=== PATIENT | female | born 1990 | race Two or more races ===

== ENCOUNTER 2024-06-27 14:11 | Outpatient (AMB) | payer OTHER, SELFPAY ==
--- NOTE | 2024-06-27 14:46 | A.OFFPC_ITS ---
Vital Signs 06/27/24 14:47 Height 5 ft 6.54 in Weight 195 lb 6 oz BMI 31.0 BP 100/76 Blood Pressure Location Lt brachial Position Sitting Pulse 72 Pulse Source Pulse Oximeter Temp 97.7 F Temp Source Temporal Artery Scan Pulse Oximetry (%) 99 Oxygen Delivery Method Room Air Intake Visit Reasons: establish care Intake Note: Patient is a new patient here to establish care for stomach ulcer. Textbook Associate Required: Yes Textbook Associate Language: Pakistani Creole Textbook Associate Name: used [employer]iya[employer] [id number] Accompanied by: Self / Same As Patient Is last menstrual period known: No (pt has 7 years without menstrual cycle.) Allergies No Known Allergies Allergy (Verified 06/27/24 15:08) Medication List - Last Reconciled 06/27/24 by Juan F Adams PA-C No Known Home Meds Tobacco use date assessed: 06/27/24 [facility] Social History Patient Tobacco Use Status: Never used Tobacco Tobacco use type: Cigarette e-Cigarette/Vaping Use: Never Used service: No Current occupational status: unemployed Questionnaire PHQ-9 Over the last 2 weeks, how often have you been bothered by any of the following problems? 1. Little interest or pleasure in doing things: more than half the days 2. Feeling down, depressed, or hopeless: nearly every day 3. Trouble falling or staying asleep, or sleeping too much: more than half the days 4. Feeling tired or having little energy: more than half the days 5. Poor appetite or overeating: not at all 6. Feeling bad about yourself - or that you are a failure or have let yourself or your family down: not at all 7. Trouble concentrating on things, such as reading the newspaper or watching television: more than half the days 8. Moving or speaking so slowly that other people could have noticed. Or the opposite - being so fidgety or restless that you have been moving around a lot more than usual: not at all 9. Thoughts that you would be better off or of hurting yourself in some way: not at all Total score: 11 56507 - PHQ-9 Billing: Yes Source: Developed by Drs. Jesse Sheridan, JakyOsman De La Rosa and colleagues, with an educational sandy from [employer]. Thrive Questionnaire Date Thrive assessed: 06/27/24 I am a: Patient What is your living situation today?: I have a place to live, but I am worried about losing it in the future (Not enough fund in the organization to help the pt. ) Within the past 12 months, did the food you bought not last and you didn't have the money to get more?: Often true ([place] food assistance will cut off 06/29/24. ) Within the past 12 months, did you worry whether your food would run out before you got money to buy more?: Never true Do you have trouble paying for medicines?: No Do you have trouble getting transportation to medical appointments?: No Do you have trouble paying your heating and electricity bill?: No Do you have trouble taking care of your child, family member or friend?: No Do you have trouble with day-to-day activities such as bathing, preparing meals, shopping, managing finances, etc.?: No Are you currently unemployed and looking for a job?: Yes Are you interested in more education?: Yes Please select the resources that you would like help with: Housing/Correction, Food, Transportation, Job search/training and Education Currently or been in a relationship where the following occur: I choose not to answer THRIVE Score: 2 AUDIT C Alcohol Use Questionnaire (AUDIT-C) 1. How often do you have a drink containing alcohol?: Never 3. How often do you have six or more drinks on one occasion?: Never Total Score: 0 HERLINDA-7 AMB Questionnaire HERLINDA-7 Date HERLINDA - 7 assessed: 06/27/24 Feeling nervous, anxious, or on edge: 0 = Not at all Not being able to stop or control worryin = Not at all Worrying too much about different things: 0 = Not at all Trouble relaxin = Not at all Being so restless that it is hard to sit still: 0 = Not at all Becoming easily annoyed or irritable: 0 = Not at all Feeling afraid as if something awful might happen: 0 = Not at all Total HERLINDA-7 score (0-4 normal; 5-9 mild; 10-14 moderate; 15-21 severe): 0 Source: Developed by Drs. Jesse Sheridan, Jaky Membreno, Osman Pan and colleagues, with an educational sandy from [employer]. Physical exam (Primary Care) Vital Signs: Last Vital Signs Temp 97.7 F 06/27/24 14:47 Pulse 72 06/27/24 14:47 BP 100/76 06/27/24 14:47 Pulse Ox 99 06/27/24 14:47 Oxygen Delivery Method Room Air 06/27/24 14:47 BMI result Body Mass Index 31.0 Tobacco/Smoking Status: Tobacco use Status Tobacco use date assessed 06/27/24 06/27/24 15:08 Patient Tobacco Use Status Never used Tobacco 06/27/24 15:08 Tobacco use type Cigarette 06/27/24 15:08 e-Cigarette/Vaping Use Never Used 06/27/24 15:08 PHQ-9: PHQ-9 Score PHQ-9: Total score 11 06/27/24 15:08 Thrive Assessment: Date of Thrive Assessment Date Thrive assessed 06/27/24 06/27/24 15:08 Currently or been in a relationship where the following occur: I choose not to answer Immunizations Boostrix Tdap 2.5 Lf unit-8 mcg-5 Lf/0.5 mL intramuscular syringe Performing Provider: Juan F Adams PA-C Per[facility] Administered by: APRIL Mayes on 06/27/24 15:37 Dose Route Admin Location Dispensed Lot Number Expiration Date NDC Cafe Attendant 0.5 mL IM Left Deltoid 0.5 mL [id number] 08/17/26 [id number] [employer] VIS Given Date VIS Provided VIS Publication Date 06/27/24 Single Vaccine 20 Eligibility Eligibility Date Funding Source Not [facility] Eligible 06/27/24 Private Coding Diagnoses Amenorrhea N91.2 Class 1 obesity E66.811 Screening for diabetes mellitus (DM) Z13.1 Gastric ulcer without hemorrhage or perforation, unspecified chronicity K25.9 Gastric ulcer chronicity: unspecified ulcer chronicity Gastric ulcer complication status: without hemorrhage or perforation Additional Codes PHQ-9 - 48915 - PHQ-9 Billing: Yes ([id number]) Assessment & Plan Assessment & Plan (1) Amenorrhea: Code(s): N91.2 - Amenorrhea, unspecified Category: Medical (2) Class 1 obesity: Code(s): E66.811 - Obesity, class 1 Category: Medical (3) Screening for diabetes mellitus (DM): Code(s): Z13.1 - Encounter for screening for diabetes mellitus Category: Medical (4) Gastric ulcer: Code(s): K25.9 - Gastric ulcer, unspecified as acute or chronic, without hemorrhage or perforation Category: Medical Qualifiers: Gastric ulcer chronicity: unspecified ulcer chronicity Gastric ulcer complication status: without hemorrhage or perforation Qualified Code(s): K25.9 - Gastric ulcer, unspecified as acute or chronic, without hemorrhage or perforation Orders: Orders Complete Blood Count no Diff Today Z13.1 - Encounter for screening for diabetes mellitus TDaP Immunization Today K25.9 - Gastric ulcer, unspecified as acute or chronic, without hemorrhage or perforation, Z23 - Encounter for immunization Comprehensive [place]. 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
[2024-06-27 14:47] VITALS: BP 100/76; PULSE 72; TEMP 36.5; O2SAT 99; BMI 31.0
--- OUTSIDE RECORDS SUMMARY | 2024-06-27 17:17 | XMS_ITS | Patient Health Record ---
Author Organization [facility] Address [address] [place] [address] [phone] Care Team Providers Care V Belt Coverer Name Role Phone JULIO WEBBER Unavailable [phone] Nydia Us Unavailable [phone] Allergies No Known Allergies Results Component Value Reference Range Notes Test, Urine Reviewed date:04/17/2024 02:05:35 PM Interpretation:Negative Performing Lab: Notes/Report: Negative Test, Urine neg Lot # [id number] Exp. Date 01/21/2025 THINPREP PAP TEST, Cervix Reviewed date:05/02/2024 08:53:55 AM Interpretation:Normal Performing Lab:[facility], [address], [place], [address] Dallas Benitez DO Notes/Report: THINPREP PAP TEST NEGATIVE NEGATIVE -- THIN PREP PAP TEST -- SEX: F : 1990 AGE: 33 [id number] CLINIC ID: [id number] SS: PHYSICIAN: JULIO WEBBER CNM COLLECTED BY: Negative for Intraepithelial Lesion or Malignancy Additional Findings: Endocervical Material Present Specimen Adequacy: Satisfactory for Evaluation Clinical Note: HPV ZynnpxuS98.419 Encounter for gynecological examination (general) (routine) without abnormal zrokulvoG87.51 Encounter for screening for human papillomavirus (HPV), LMP 05-01-2017 Specimen Source: Cervix Visit Type: Routine Performed by: BREE Willard (ASCP) (Electronic Signature 04/20/2024 23:42) HPV HIGH RISK, Cervix Reviewed date:05/02/2024 08:54:04 AM Interpretation:Negative Performing Lab:[facility], [address], [place], [address] Dallas Benitez DO Notes/Report: HPV HIGH RISK NEGATIVE NEGATIVE HPV High Risk DNA Probe Assay SEX: F : 1990 AGE: 33 [id number] CLINIC ID: [id number] SS: PHYSICIAN: JULIO WEBBER CNM COLLECTED BY: Specimen Source: Cervix Specimen Type: ThinPrep Pap Correlating Pap: [id number] Additional High Risk Subtypes* NEGATIVE * Includes 31,33,35,39,45,51,52,56,58 ,59,66,68 Subtype 16 NEGATIVE Subtype 18 NEGATIVE Testosterone,All genders-540 005 Reviewed date:04/15/2024 10:57:18 AM Interpretation:11 Normal Performing Lab:[facility], [address] [place] [address], Phone - [phone], Director - [facility] [address] Notes/Report: Testosterone, All genders 11 This test was developed and its performance characteristics determined by [facility]. It has not been cleared or approved by the Food and Drug Administration. Reference Range: Note: The order code chosen results in a complete set of reference ranges, including transgender specific reference intervals if applicable. Age Range Males Premature (26-28w) Day 4 59-125 Premature (31-35w) Day 4 37-198 Newborns 75-400 1 - 7m: Levels decrease rapidly the first week to 20 - 50, then increase to 60 - 400 between 20 - 60 days. Levels then decline to prepubertal range levels of <2.5 - 10 by seven months. Females Premature (26-28w) Day 4 5-16 Premature (31-35w) Day 4 5-22 Newborns 20-64 1 - 7m: Levels decrease during the first month to less than 10 and remain there until puberty. Prepubertal Males and Females <2.5-10 Simone Stage Age(years) Male 1 <9.8 2.5-10 2 9.8-14.5 18-150 3 10.7-15.4 100-320 4 11.8-16.2 200-620 5 12.8-17.3 350-970 Simone Stage Age(years) Female 1 <9.2 <2.5-10 2 9.2-13.7 7-28 3 10.0-14.4 15-35 4 10.7-15.6 13-32 5 11.8-18.6 20-38 Adult Males >18 years 264-916 This [employer] LC/MS-MS method is currently certified by the CDC Hormone Standardization Program (HoST). Adult male reference interval is based on a population of healthy nonobese males (BMI <30) between 19 and 39 years old. Kimmy, et.al. JCEM 2017,102;3765-7135 PMID: [id number]. Adult Females Premenopausal 10-55 Postmenopausal 7-40 TSH reflex to [id number] Reviewed date:03/26/2024 12:33:57 PM Interpretation:1.750 (normal) Performing Lab:[facility], [facility] [address], [address], [place], Phone - [phone], Director - [facility] Notes/Report: TSH 1.750 0.450-4.500 uIU/mL NuSwab VG+, Ena 6sp-1800 68 Reviewed date:04/05/2024 09:24:43 AM Interpretation:negative Performing Lab:[facility], [address] [facility], [place], Phone - [phone], [facility] Notes/Report: Test(s) 718672- Atopobium vaginae; 438774- BVAB 2; 752790- Megasphaera 1 was developed and its performance characteristics determined by [employer]. It has not been cleared or approved by the Food and Drug Administration. Test(s) 681153-Tjegaxd albicans, FABIOLA; 782812-Cmxghel glabrata, FABIOLA; 129815-A parapsilosis/tropicalis; 328221-Kzzjaka lusitaniae, FABIOLA; 327007-Qhnfury krusei, FABIOLA was developed and its performance characteristics determined by [employer]. It has not been cleared or approved by the Food and Drug Administration. Atopobium vaginae Low - 0 BVAB 2 Low - 0 Megasphaera 1 Low - 0 Calculate total score by adding the 3 individual bacterial vaginosis (BV) marker scores together. Total score is interpreted as follows: Total score 0-1: Indicates the absence of BV. Total score 2: Indeterminate for BV. Additional clinical data should be evaluated to establish a diagnosis. Total score 3-6: Indicates the presence of BV. Ena albicans, FABIOLA Negative Negative Ena glabrata, FABIOLA Negative Negative C parapsilosis/tropicalis Negative Negative Th is assay does not differentiate C. tropicalis and C. parapsilosis. Ena lusitaniae, FABIOLA Negative Negative Ena krusei, FABIOLA Negative Negative Trich vag by FABIOLA Negative Negative Chlamydia trachomatis, FABIOLA Negative Negative Neisseria gonorrhoeae, FABIOLA Negative Negative HIV Ab/p24 Ag with Reflex-08 3935 Reviewed date:03/26/2024 12:34:27 PM Interpretation:non reactive Performing Lab:[facility], Dipika Mukherjee, [address] [place] [address], Phone - [phone], Director - [facility] Notes/Report: HIV Ab/p24 Ag Screen Non Reactive Non Reactive HIV-1/HIV-2 antibodies and HIV-1 p24 antigen were NOT detected. There is no laboratory evidence of HIV infection. HIV Negative T pallidum Screening Pierce -[id number] Reviewed date:03/26/2024 10:11:22 AM Interpretation:non reactive Performing Lab:[facility], [address]ika [address], [address], [place], Phone - [phone], Director - [facility] Notes/Report: T pallidum Antibodies Non Reactive Non Reactive [facility]-[id number] Reviewed date:04/05/2024 02:24:10 PM Interpretation:18.0 Performing Lab:[facility] [place], [address] [place] [address], Phone - [phone], Director - MDJodry Notes/Report: Estradiol 18.0 Adult Female Range Follicular phase 12.5 - 166.0 Ovulation phase 85.8 - 498.0 Luteal phase 43.8 - 211.0 Postmenopausal <6.0 - 54.7 1st trimester 215.0 - >4300.0 Pat ECLIA methodology Prolactin-764151 Reviewed date:03/26/2024 02:38:20 PM Interpretation:23.3 (normal) Performing Lab:[facility] [place], [address] [place] [address], Phone - [phone], Director - Maria Elenay Notes/Report: Prolactin 23.3 4.8-33.4 ng/mL FSH-287710 Reviewed date:04/05/2024 02:23:43 PM Interpretation:25.6 Performing Lab:[facility] [place], [address] [facility], [place], Phone - [phone], Director - Maria Elenay Notes/Report: FSH 25.6 Adult Female Range Follicular phase 3.5 - 12.5 Ovulation phase 4.7 - 21.5 Luteal phase 1.7 - 7.7 Postmenopausal 25.8 - 134.8 Urinalysis Reviewed date:03/26/2024 09:48:09 AM Interpretation:negative Performing Lab: Notes/Report: negative Leukocytes - Nitrates - Uro 0.2 Protein - pH 6.0 Blood - Spec [place] 1.030 Ketones - Bilirubin - Glucose - Test, Urine Reviewed date:03/25/2024 02:01:28 PM Interpretation:Negative Performing Lab: Notes/Report: Negative Test, Urine nrg Lot # [id number] Exp. Date [id number] Reason For Referral No Information Social History Sex Assigned At : Social History Observation Description Sex Assigned At Female Problems Problem Type SNOMED Code ICD Code Onset Dates Problem Status W/U Status Risk Notes Problem Secondary amenorrhea (569324774) Secondary amenorrhea (N91.1) Active confirmed Problem Amenorrhea (82476995) Amenorrhea (N91.2) Active confirmed Vital Signs Blood pressure diastolic 76 mm Hg 04/17/2024 Height 5'5 in 04/17/2024 Blood pressure systolic 132 mm Hg 04/17/2024 Weight 220 lbs 04/17/2024 BMI 36.61 kg/m2 04/17/2024 Encounters Encounter Location Date Provider Diagnosis [address] [phone] 03/25/2024 Nydia Us Encounter for test, result negative Z32.02 ; Urinary frequency R35.0 ; Secondary amenorrhea N91.1 ; Encounter for screening for infections with a predominantly sexual mode of transmission Z11.3 ; Vaginal discharge N89.8 and Encounter for screening for human immunodeficiency virus [HIV] Z11.4 [facility] [address] [place], [place] [id number] 04/17/2024 JULIO WEBBER Encounter for gynecological examination (general) (routine) without abnormal findings Z01.419 ; Encounter for screening for human papillomavirus (HPV) Z11.51 ; Amenorrhea N91.2 and Encounter for test, result negative Z32.02 Assessments Encounter Date Diagnosis (ICD Code) Assessment Notes Treatment Notes Treatment Clinical Notes Section Notes 04/17/2024 Encounter for gynecological examination (general) (routine) without abnormal findings (ICD-10 - Z01.419) For routine pap screening today. If normal then routine screening in 5 years recommended 04/17/2024 Encounter for screening for human papillomavirus (HPV) (ICD-10 - Z11.51) 04/17/2024 Amenorrhea (ICD-10 - N91.2) FSH is mildly elevated however clt has been on Depo for the past 6 years and was less than 1 yr since last injection. It can take upto a year or sometimes longer for fertility to return after Depo use. A long conversation using patient accounts clerk services to review this information. Did review that ovulation can occur prior to menses returningand that can occur. Discussed options for control now despite no menses. Clt prefers to use condoms for now until menses returns. Bag of condoms given Recommend follow-up visit in July to see if menses back then. Can consider repeating labs at that time if not 03/25/2024 Encounter for test, result negative (ICD-10 - Z32.02) Need 2 out of 3 Sections from A-C Section B) Data (at least one of the following categories in this section) Category 1: (Choose 2 of the following): Order unique tests Section C) Risk Document low risk of morbidity/mo rtality 03/25/2024 Urinary frequency (ICD-10 - R35.0) Normal UA Need 2 out of 3 Sections from A-C Section B) Data (at least one of the following categories in this section) Category 1: (Choose 2 of the following): Order unique tests Section C) Risk Document low risk of morbidity/mo rtality 04/17/2024 Encounter for test, result negative (ICD-10 - Z32.02) 03/25/2024 Secondary amenorrhea (ICD-10 - N91.1) Reviewed possible causes of secondary amenorrhea. Suspect due to tail effect of DMPA. Will screen for PCOS, thyroid disorder and hyperprolactinemia today. Pt to return for pelvic exam at soonest convenience. Need 2 out of 3 Sections from A-C Section B) Data (at least one of the following categories in this section) Category 1: (Choose 2 of the following): Order unique tests Section C) Risk Document low risk of morbidity/mo rtality 03/25/2024 Encounter for screening for infections with a predominantly sexual mode of transmission (ICD-10 - Z11.3) Need 2 out of 3 Sections from A-C Section B) Data (at least one of the following categories in this section) Category 1: (Choose 2 of the following): Order unique tests Section C) Risk Document low risk of morbidity/mo rtality 03/25/2024 Encounter for screening for human immunodeficiency virus [HIV] (ICD-10 - Z11.4) Need 2 out of 3 Sections from A-C Section B) Data (at least one of the following categories in this section) Category 1: (Choose 2 of the following): Order unique tests Section C) Risk Document low risk of morbidity/mo rtality 03/25/2024 Vaginal discharge (ICD-10 - N89.8) Vag+ testing sent. Reviewed STI screening recommendations and available testing through [facility]. Testing ordered as noted per patient risks and preference. Encouraged safe sex practices. Advised to call for evaluation if any symptoms arise. Reviewed method of communicating results to patient. Need 2 out of 3 Sections from A-C Section B) Data (at least one of the following categories in this section) Category 1: (Choose 2 of the following): Order unique tests Section C) Risk Document low risk of morbidity/mo rtality Plan Of Treatment Next Appt Details Provider Name:JULIO WEBBER, 11:00:00 AM, [address] [place] [address], [phone], Insurance Providers Payer Name Payer Address Payer Phone Subscriber Number Group Number Insured Name Patient Relationship to Insured Coverage Start Date Coverage End Date [place] ATT [place]S [address] [place] [address] [id number] Alana Valencia Self - patient is the insured Medical (General) History Medical History History ICD Code Vaginal infections stomach ulcer Hospitalization History Reason Date(Month/Year) childbirth
--- OUTSIDE RECORDS SUMMARY | 2024-06-27 17:17 | XMS_ITS ---
Author Organization [facility] Address [address] [place] [phone] Care Team Providers Care Creative Engagement Director Name Role Phone JULIO WEBBER Unavailable [phone] Allergies No Known Allergies Results Component Value Reference Range Notes Test, Urine Reviewed date:04/17/2024 02:05:35 PM Interpretation:Negative Performing Lab: Notes/Report: Negative Test, Urine neg Lot # [id number] Exp. Date 01/21/2025 THINPREP PAP TEST, Cervix Reviewed date:05/02/2024 08:53:55 AM Interpretation:Normal Performing Lab:[facility], [address], [place], [address] Dallas Benitez DO Notes/Report: THINPREP PAP TEST NEGATIVE NEGATIVE -- THIN PREP PAP TEST -- SEX: F : 1990 AGE: 33 [id number] CLINIC ID: [id number] SS: PHYSICIAN: JULIO WEBBER CNM COLLECTED BY: Negative for Intraepithelial Lesion or Malignancy Additional Findings: Endocervical Material Present Specimen Adequacy: Satisfactory for Evaluation Clinical Note: HPV CmhfggkF15.419 Encounter for gynecological examination (general) (routine) without abnormal ttofgsouT42.51 Encounter for screening for human papillomavirus (HPV), LMP 05-01-2017 Specimen Source: Cervix Visit Type: Routine Performed by: BREE Willard (ASCP) (Electronic Signature 04/20/2024 23:42) HPV HIGH RISK, Cervix Reviewed date:05/02/2024 08:54:04 AM Interpretation:Negative Performing Lab:[facility], [place], [address] Dallas Benitez DO Notes/Report: HPV HIGH RISK NEGATIVE NEGATIVE HPV High Risk DNA Probe Assay SEX: F : 1990 AGE: 33 [id number] CLINIC ID: [id number] SS: PHYSICIAN: JULIO WEBBER CNM COLLECTED BY: Specimen Source: Cervix Specimen Type: ThinPrep Pap Correlating Pap: [id number] Additional High Risk Subtypes* NEGATIVE * Includes 31,33,35,39,45,51,52,56,58,59,66 ,68 Subtype 16 NEGATIVE Subtype 18 NEGATIVE REASON FOR VISIT Annual Exam Social History Sex Assigned At : Social History Observation Description Sex Assigned At Female Vital Signs Blood pressure systolic 132 mm Hg 04/17/20 24 Blood pressure diastolic 76 mm Hg 024 Height 5'5 in 04/17/2024 Weight 220 lbs 04/17/2024 BMI 36.61 kg/m2 04/17/2024 Encounters Encounter Location Date Provider Diagnosis [address] [phone] 04/17/2024 JULIO WEBBER Encounter for gynecological examination [...] after Depo use. A long conversation using job foreman services to review this information. Did review that ovulation can occur prior to menses returningand that can occur. Discussed options for control now despite no menses. Clt prefers to use condoms for now until menses returns. Bag of condoms given Recommend follow-up visit in July to see if menses back then. Can consider repeating labs at that time if not 04/17/2024 Encounter for test, result negative (ICD-10 - Z32.02) Plan Of Treatment Treatment Notes Assessment Notes Encounter for gynecological examination (general) (routine) without abnormal findings For routine pap screening today. If norm al then routine screening in 5 years recommended Amenorrhea FSH is mildly elevated however clt has been on Depo for the past 6 years and was less than 1 yr since last injection. It can take upto a year or sometimes longer for fertility to return after Depo use. A long conversation using job foreman services to review this information. Did review that ovulation can occur prior to menses returningand that can occur. Discussed options for control now despite no menses. Clt prefers to use condoms for now until menses returns. Bag of condoms given Recommend follow-up visit in July to see if menses back then. Can consider repeating labs at that time if not Next Appt Details Follow Up: July, Reason: Am enorrhea follow-up Provider Name:JULIO WEBBER, 11:00:00 AM, [address] [place] [address], [place], [place], [phone], Progress Notes * Omaira MCCULLOUGHOB:06/1990 (33 yo F)Acc No.[id number]:04/17/2024 Progress Notes Patient:?Nemo MCCULLOUGH Provider:?JULIO WEBBER :1990???Age:33 Y???Sex:Female D ate:04/17/2024 Address:[address], [id number] Subjective: * Chief Complaints: * ???Annual Exam * HPI: ???Visit Narrative:? Clt here for annual exam. 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 Clt reports Depo use for past 6 years every 3 months. Last Depo 07/10/2023. Not attempting right now but does want to attempt in 2025 Urinary concerns: none Clt seen 03/25/24. Neg STI and vaginal infection testing. Had some hormone checks for amenorrhea: FSH25.6, Estradiol 18, testosterone 11, PRL 23.3. Has an almost 7 yr old child. No other medications and not breast feeding. ?Reason for the visit:?Annual exam / pap.?Current form of control:?Withdrawal.?Presenting Symptoms:?No concerns?.?LMP:?05/01/2015 per client.?Last date of UPI:?04/15/24.?Other Notes for the Clinician:?Client will need language line for Vishal Jones.? * ROS:?see HPI. * Medical History:? * Teacher Instrumental History:? control:?WithdrawalPrevious: Depo.?Last menstrual period:?05/01/2015.?Last pap smear date:?04/17/24 pap collectedClt reports no previous pap screening.?Menarche: ?Age of menarche?13 ???Periods:?Amen..?Sexual activity:?Currently sexually active, with men.?Sexually Transmitted Diseases (STDs):?None.?Unprotected sex in the last 5 days?:?Yes.?Unprotected sex in the past 10 days?:?Yes.? * OB History:?Total pregnancies:?1.?Total living children:?1.? # 1:?normal spontaneous vaginal delivery ().? * Surgical History:?No Surgica l History documented. * Hospitalization/Major Diagno stic Procedure:?childbirth * Family History:?Non-Contribu tory.? Per client. * Social History:?Food Access:?Food Access?The Client's current access to food is?Insecure Access to food clt would like food referrals ???Housing:?Housing?The client's current living situation is:?stable housing ???Reproductive Life Plan:?Reproductive Life Plan?Do you want to have children??No, I don't want to have children ?How sure are you that you will be able to use your control method without any problems??Very sure ?People's plans change. Is it possible you or your partner could ever decide to become ??No ???Sexual History:?Sexual History?Sexual History Reviewed:?Partners, Practices, Protection/Past STIs ?Currently sexually active??Yes ?Sexually active with:?Men ?Number of male partners?1 ?Your sexual activities include:?vaginal intercourse ?Do you use condoms??No ?Date of last unprotected intercourse:?04/15/2024 ?Number of partners in past 3 months:?1 ?Number of partners in past year:?1 ?Does your partner(s) currently have any STIs??No ???HIV Risk Assessment:?Additional Questions?Is an HIV Risk Assessment being conducted??No ???PrEP for HIV:?PrEP for HIV?Is the client interested in beginning/continuing PrEP for HIV??No ???Relationships:?Relationships?Has the client experienced any of the following:?Client has never experienced harmful relationships ???Human Trafficking:?Human Trafficking?Experienced:?No ???Tobacco Use:?Tobacco Use?Do you/have you used tobacco??No ?Tobacco Smoking Status?Unknown if ever smoked ???Drugs/Alcohol:?Drug/Alcohol Use?Do you or have you used drugs??No ?Do you or have you used alcohol??No ???Counseling Provided:?Counseling Provided?Please indicate the length of time, in minutes, that counseling was provided.?8 ?Counseling Was Provided By:?lydper * Medications:?None * Allergies:?N.K.D.A.no[Allerg ies Verified] Objective: * Vitals:?BP:132/76mm Hg, Ht: 5'5 , Wt:220lbs, BMI:36.61Index, Ht-cm: 165.1, Wt- k.79. * Examination: ???Genitourinary: ?EXTERNAL GENITALIA:?External Genitalia:?normal, no lesions ?VAGINA:?Vagina:?normal appearance, no abnormal discharge, no lesions ?URETHRAL MEATUS:?Urethral Meatus:?normal ?CERVIX:?Cervix:?no lesions, nontender ?UTERUS:?Uterus:?nontender, normal contour, normal mobility, normal size ?ADNEXA:?Adnexa:?no masses, no tenderness ?ANUS AND PERINEUM:?Anus/Perineum:?visually normal?General Exam: ?CONSTITUTIONAL:?General Appearance:?alert, in no acute distress ?NECK/THYROID:?Inspection/Palpation:?normal ?Thyroid:?normal size and shape ?RESPIRATORY:?Auscultation:?clear to auscultation bilaterally ?Respiratory Effort:?normal ?CARDIOVASCULAR:?Auscultation:?regular rate and rhythm ?BREAST, Right:?Inspection/Palpation:?no discharge, no masses present, no nipple retraction, no skin changes, no skin dimpling, no tenderness, no lymphadenopathy, no axillary mass, no axillary tenderness ?BREAST, Left:?Inspection/Palpation:?no discharge, no masses present, no nipple retraction, no skin changes, no skin dimpling, no tenderness, no lymphadenopathy, no axillary mass, no axillary tenderness ?GASTROINTESTINAL:?Abdomen:?no masses, nontender, nondistended ?SKIN:?Skin:?no suspicious lesions, warm and dry ?NEURO/PSYCH:?Orientation:?time , place, person ?Mood/Affect:?normal??? Assessment: * Assessment: 1.?Encounter for gynecologic al examination (general) (routine) without abnormal findings - Z01.419 (Primary)???2.?Encounter for screening for human papillomavirus (HPV) - Z11.51???3.?Amenorrhea - N91.2???4.?Encounter for test, result negative - Z32.02??? Plan: * Treatment: ? Value Reference Range ?THINPREP PAP TEST NEGATIVE NEGAT CHRIST - * JULIO WEBBER 05/02/2024 08:49:56 AM EST > your pap results are normal and your HPV screening is also negative. I recommend routine screening in 5 years. Call with questions or concerns. Thanks, Dorothea lab was reviewed by JULIO WEBBER on 05/02/2024 at 08:53 AM EST ?LAB: HPV HIGH RISK, Cervix (Collection Date & Time - 04/17/2024 02:05 PM)* ? Value Reference Range ?HPV HIGH RISK NEGATIVE NEGATIVE - * This lab was reviewed by LUCY LOCO on 05/02/2024 at 08:54 AM EST Notes: For routine pap screening today. If normal then routine screening in 5 years recommended ?2.?Encounter for screening for human papillomavirus (HPV)?LAB: HPV HIGH RISK, Cervix (Collection Date & Time - 04/17/2024 02:05 PM)* ? Value Reference Range ?HPV HIGH RISK NEGATIVE NEGATIVE - * This lab was reviewed by LUCY LOCO on 05/02/2024 at 08:54 AM EST 3.?Amenorrhea? Notes: FSH is mildly elevated however clt has been on Depo for the past 6 years and was less than 1yr since last injection. It can take upto a year or sometimes longer for fertility to return after Depo use. A long conversation using job foreman services to review this information. Did review thatovulation can occur prior to menses returningand that can occur. Discussed options for control now despite no menses. Clt prefers to use condoms for now until menses returns. Bag of condoms given Recommend follow-up visit in July to see if menses back then. Can consider repeating labs at that time if not??4.?Encounter for test, result negative?LAB: Test, Urine (Collection Date & Time - 04/17/2024)?Negative* ? Value Reference Range ? Test, Urine neg * ?Lot # [id number] * ?Exp. Date 01/21/2025 * Procedure Codes:?99987 Pregn jesse, Urine * Follow Up:?July (Reason: Am enorrhea follow-up) * Billing Information: * Visit Code:? 99304 Existing Preventative - Age 18-39 (IN USE). * Procedure Codes:? 41130 , Urine. * Sign off status: Completed true * Provider:EWA WEBBER Date:?04/17/2024 [facility] for [facility] norwood/Nilson/eTransmitting on:?06/27/2024 05:17 PM EST History and Physical Notes * HPI (History of Present Illness) Category Sub-Category Detail Notes Category Not es Visit Narrative Reason for the visit: Annual exam / pa p Current form of control: Withdrawa l Presenting Symptoms: No concerns Other Notes for the Clinician: Client wi ll need language line for Hatian Creole LMP: 05/01/2015 per client Last date of UPI: 04/15/24 Examination Category Sub-Category Detail Notes Category Not es General Exam CONSTITUTIONAL: General Appearan ce:: alert, in no acute distress NECK/THYROID: Inspection/Palpation:: normal Thyroid:: normal size and shape RESPIRATORY: Auscultation:: clear to ausculta tion bilaterally Respiratory Effort:: normal CARDIOVASCULAR: Auscultation:: regular rate and rhythm GASTROINTESTINAL: Abdomen:: no masses, nontender , nondistended SKIN: Skin:: no suspicious lesions, wa rm and dry NEURO/PSYCH: Orientation:: time , place, pers on Mood/Affect:: normal BREAST, Right: Inspection/Palpation :: no discharge, no masses present, no nipple retraction, no skin changes, no skin dimpling, no tenderness, no lymphadenopathy, no axillary mass, no axillary tenderness BREAST, Left: Inspection/Palpation :: no discharge, no masses present, no nipple retraction, no skin changes, no skin dimpling, no tenderness, no lymphadenopathy, no axillary mass, no axillary tenderness Genitourinary EXTERNAL GENITALIA: External Genitalia:: nor mal, no lesions VAGINA: Vagina:: normal appe arance, no abnormal discharge, no lesions URETHRAL MEATUS: Urethral Meatus:: normal CERVIX: Cervix:: no lesions, nontender UTERUS: Uterus:: nontender, normal contour, normal mobility, normal size ADNEXA: Adnexa:: no masses, no tendernes s ANUS AND PERINEUM: Anus/Perineum:: visually norm al
== END 2024-06-27 15:33 | disposition home or self-care (01) ==
PROVIDERS: PCP Physician Assistant; Visit Provider Physician Assistant
DX: Z23 Encounter for immunization (principal); K25.9 Gastric ulcer, unspecified as acute or chronic, without hemorrhage or perforation

== ENCOUNTER → 2024-06-27 14:11 | Outpatient (BNVA) | payer OTHER, SELFPAY | PROVIDERS: PCP Internal Medicine; Visit Provider Physician Assistant | DX: Z23 Encounter for immunization (principal); N91.2 Amenorrhea, unspecified; E66.811 Obesity, class 1; K25.9 Gastric ulcer, unspecified as acute or chronic, without hemorrhage or perforation; F33.1 Major depressive disorder, recurrent, moderate | CPT/HCPCS: 90471; 90715; 96127; 99202 ==

== ENCOUNTER 2024-07-03 15:13 | Outpatient (REF) | payer OTHER, SELFPAY ==
[2024-07-03 17:19] LABS: Hematocrit 35.3 % (37.0-47.0); Hemoglobin 11.4 g/dl (12.0-16.0); Mean Corpuscular HGB Conc 32.3 g/dl (31.0-35.0); Mean Corpuscular Hemoglobin 29.8 pg (27.0-33.0); Mean Corpuscular Volume 92.4 fL (80.0-98.0); Mean Platelet Volume 11.1 fL (9.4-12.3); Platelet Count 207 X10*3/uL (160-400); Red Blood Count 3.82 X10*6/uL (4.20-5.50); White Blood Count 5.1 X10*3/uL (4.8-10.8)
[2024-07-03 18:05] LABS: Alanine Aminotransferase 29 U/L (0-31); Albumin Level 4.2 g/dL (3.5-5.0); Alkaline Phosphatase 58 U/L (39-117); Anion Gap 10 (12-20); Aspartate Amino Transferase 28 U/L (5-31); Bilirubin Total 0.2 mg/dL (0.0-1.0); Blood Urea Nitrogen 10 mg/dL (9-16); Calcium 9.1 mg/dL (8.4-10.2); Carbon Dioxide 24 mmol/L (22-29); Chloride 112 mmol/L (96-108); Estimated Glomerular Filt Rate > 60; Glucose Fasting 83 mg/dL (60-99); Sodium 142 mmol/L (135-145); Total Protein 7.2 g/dL (6.5-8.0)
== END 2024-07-03 15:14 | disposition home or self-care (01) ==
LOC: HO.LAB 15:13
PROVIDERS: PCP Physician Assistant; Visit Provider Physician Assistant
DX: Z13.1 Encounter for screening for diabetes mellitus (principal)
CPT/HCPCS: 36415; 80053; 85027

== ENCOUNTER 2024-12-02 14:57 | Outpatient (AMB) | payer OTHER, SELFPAY ==
--- OUTSIDE RECORDS SUMMARY | 2024-08-30 11:00 | XMS_ITS ---
Author Organization [facility] Address [address] [place] [phone] Care Team Providers Care Farm Owner Operator Name Role Phone JULIO WEBBER Unavailable [phone] REASON FOR VISIT Follow-up Social History Sex Assigned At : Social History Observation Description Sex Assigned At Female Encounters Encounter Location Date Provider Diagnosis [facility] [address] [place] [phone] 06/2024 JULIO WEBBER Plan Of Treatment No Information Progress Notes * Nemo MCCULLOUGHeDOB:06/1990 (34 yo F)Acc No.[id number]:08/30/2024 Progress Notes Patient: Alana OQUENDO Provider: Kassy WEBBER :1990 A ge:33 Y S ex:Female Date:08/30/2024 Address:[facility] [address] [id number] Subjective: * Chief Complaints: * 1 . Follow-up. * Medical History: Objective: * Vitals: Assessment: Plan: * Treatment: * Billing Information: * Visit Code: * Procedure Codes: * Electronic signature of RAFFY WEBBER CNM on 12/02/2024 at 03:00 PM EDT Sign off status: Pending * Provider: Kassy WEBBER Date: 08/30/2024 Generated for Krishna norwood/Nilson/Francisca on: 12/02/2024 03:00 PM EDT
--- NOTE | 2024-12-02 15:10 | A.OFFPC_ITS ---
Vital Signs 12/02/24 15:11 Height 5 ft 6.24 in Weight 190 lb BMI 30.4 BP 110/68 Blood Pressure Location Rt brachial Position Sitting Pulse 79 Pulse Source Pulse Oximeter Temp 97.3 F Temp Source Temporal Artery Scan Pulse Oximetry (%) 100 Oxygen Delivery Method Room Air Intake Visit Reasons: annual exam Intake Note: Patient is here today for a physical. Collection Systems Administrator Required: Yes Collection Systems Administrator Language: Greek Creole Collection Systems Administrator Name: Yanni ([id number]) Information Interpreted: non-clinical & clinical Silk Presser: Not Required per policy Accompanied by: Self / Same As Patient Allergies No Known Allergies Allergy (Verified 12/02/24 15:29) Medication List - Last Reconciled 12/02/24 by Juan F Adams PA-C pantoprazole 20 mg PO DAILY Tobacco use date assessed: 12/02/24 Dental Screening Dental Screen Date: 12/02/24 Did you have a dental visit in the last 12 months?: Yes Did you have a dental problem in the last 6 months where you did not have access to dental care?: No Was dental information given to patient?: Patient has dentist HPI annual exam HPI Details Patient is a 34-year-old female here today for annual physical Patient is Creole speaking only thus used a remote dog daycare provider today. She reports she has a past medical history of gastric ulcer and amenorrhea over the last 5-6 years. Amenorrhea: She reports previously being on Depo-Provera after her has a form of control. She has a 7-year-old son. She reports getting her menstrual period in the month of August and September though has not gotten her periods since. She is interested in getting test. She has upcoming appointment with the [facility] radio operator for evaluation of her amenorrhea. .. Gastric ulcer: She has a distant history of gastric ulcer. 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 Laboratory Tests 07/03/24 15:22 Hgb 11.4 L Creatinine 0.66 PFSH Surgical History No pertinent past surgical history Social History Patient Tobacco Use Status: Never used Tobacco Tobacco use type: Cigarette e-Cigarette/Vaping Use: Never Used Second Hand Smoke Exposure: No service: No Current occupational status: unemployed Cognitive needs: No Hearing needs: No Vision needs: No Questionnaire Thrive Questionnaire Date Thrive assessed: 06/27/24 I am a: Patient What is your living situation today?: I have a steady place to live Within the past 12 months, did the food you bought not last and you didn't have the money to get more?: Often true Within the past 12 months, did you worry whether your food would run out before you got money to buy more?: Never true Do you have trouble paying for medicines?: No Do you have trouble getting transportation to medical appointments?: No Do you have trouble paying your heating and electricity bill?: No Do you have trouble taking care of your child, family member or friend?: No Do you have trouble with day-to-day activities such as bathing, preparing meals, shopping, managing finances, etc.?: No Are you currently unemployed and looking for a job?: Yes Are you interested in more education?: Yes Currently or been in a relationship where the following occur: I choose not to answer THRIVE Score: 1 AUDIT C Alcohol Use Questionnaire (AUDIT-C) 3. How often do you have six or more drinks on one occasion?: Never Total Score: 0 HERLINDA-7 AMB Questionnaire HERLINDA-7 Date HERLINDA - 7 assessed: 06/27/24 Source: Developed by Drs. Jesse Sheridan, Jaky Membreno, Osman Pan and colleagues, with an educational sandy from [employer]. Review of Systems Const Denies body aches, Denies chills, Denies excessive sweating, Denies fatigue, Denies fever(s) and Denies headache(s) Eyes Denies blurry vision ENT Denies dysphagia, Denies vertigo, Denies dizziness, Denies headache(s), Denies hearing loss and Denies tinnitus Card Denies chest pain, Denies chest pain with activity, Denies syncope, Denies irregular heart rhythm and Denies dyspnea Resp Denies chest congestion, Denies cough, Denies hemoptysis, Denies dyspnea and Denies wheezing GI Denies abdominal pain, Denies melena, Denies hematochezia, Denies coffee ground emesis, Denies dysphagia, Denies diarrhea, Denies nausea and Denies vomiting Denies urinary frequency, Denies dysuria, Denies urinary hesitancy and Denies urinary urgency Musc Denies arthralgias, Denies limited range of motion, Denies muscle cramps and Denies muscle weakness Skin/Breast Denies rash and Denies skin ulcer Neuro Denies Abnormal speech present, Denies confusion, Denies vertigo, Denies dizziness, Denies syncope, Denies headache(s), Denies memory loss and Denies seizure-like activity Psych Denies anxiety, Denies confusion, Denies depression, Denies memory loss, Denies panic attacks and Denies paranoia Endo Denies excessive sweating, Denies fatigue, Denies flushing, Denies polydipsia and Denies polyuria Aller/Immun Denies wheezing Physical exam (Primary Care) Vital Signs: Last Vital Signs Temp 97.3 F 12/02/24 15:11 Pulse 79 12/02/24 15:11 BP 110/68 12/02/24 15:11 Pulse Ox 100 12/02/24 15:11 Oxygen Delivery Method Room Air 12/02/24 15:11 BMI result Body Mass Index 30.4 BMI Assessment/Plan discussion: High BMI High, discussed plan: lifestyle, weight reduction, dietary and physical activity Tobacco/Smoking Status: Tobacco use Status Tobacco use date assessed 12/02/24 12/02/24 15:20 Patient Tobacco Use Status Never used Tobacco 12/02/24 15:20 Tobacco use type Cigarette 12/02/24 15:20 e-Cigarette/Vaping Use Never Used 12/02/24 15:20 Thrive Assessment: Date of Thrive Assessment Date Thrive assessed 06/27/24 12/02/24 15:20 Currently or been in a relationship where the following occur: I choose not to answer Const General: cooperative, comfortable, no acute distress, alert and awake; No confusion Orientation/consciousness: oriented to person, oriented to place, patient oriented x3 and No confusion HENMT Head: Yes normocephalic Ears: external ears normal and TM's normal bilaterally Face and sinus: No sinus tenderness Mouth: Normal oral and palatal mucosa present and tongue normal Teeth and gingiva: dentition normal and gingiva normal Throat: Yes posterior oropharynx normal, Yes tonsils normal and Yes uvula midline Eyes Conjunctivae: conjunctivae normal Sclerae: sclerae normal Pupils: Equal, round and reactive pupils present EOM: EOMs intact bilaterally Direct Ophthalmoscopy: No no photophobia Neck Neck: Yes no lymphadenopathy, No tender and Yes no JVD Thyroid: Thyroid normal Carotids: no bruits Chest Chest palpation & inspection: no tenderness Resp Effort & Inspection: normal respiratory effort, no audible wheezes, not labored and no stridor Auscultation: no crackles, no rales, no rhonchi and no wheezes Cardio Jugular venous distension: no JVD Rate: regular rate, not bradycardic and not tachycardic Rhythm: regular rhythm Bruits: no carotid bruits Peripheral pulses: Peripheral pulses 2+ throughout GI Inspection: Yes normal to inspection, No abdominal wall ecchymosis and No visible herniation Palpation (GI): Soft to palpation, nontender, no guarding, not rigid and No hepatosplenomegaly present Auscultation: normoactive bowel sounds General: Yes no CVA tenderness Back/Spine/Pelvis Back: no CVA tenderness and No back tenderness Cervical Spine: cervical ROM normal Thoracic/Lumbar Spine: thoracic and lumbar spine normal to inspection, straight leg raise negative bilaterally, No thoraco-lumbar ROM limited and No lumbar spinal tenderness Skin Lesions: no lesions Rashes: no rashes Wounds: no wounds Neuro General: oriented to person, oriented to place, patient oriented x3, CN's II-XI intact bilaterally and No confusion Cranial nerves: Yes Equal, round and reactive pupils present and Yes Normal accommodation reflex present Cognition (Neuro): normal cognition Speech: No Abnormal speech present Gait exam (Neuro): Normal gait present Motor exam (neuro): 5/5 motor strength present throughout Extrem Right upper extremity: full ROM; no cyanosis Left upper extremity: full ROM; no cyanosis Right lower extremity: no edema Left lower extremity: no edema Psych Appearance: grossly normal Mental Status: mental status grossly normal Affect: normal affect Attitude: cooperative Thought process: Normal thought process present Coding Level of Care Code Est Pt Prev Care 18-39y(30329) Diagnoses Annual physical exam Z00.00 Gastric ulcer without hemorrhage or perforation, unspecified chronicity K25.9 Gastric ulcer chronicity: unspecified ulcer chronicity Gastric ulcer complication status: without hemorrhage or perforation Amenorrhea N91.2 Class 1 obesity E66.811 Assessment & Plan Assessment & Plan (1) Annual physical exam: Code(s): Z00.00 - Encounter for general adult medical examination without abnormal findings Category: Medical Plan: as per HPI (2) Gastric ulcer: Code(s): K25.9 - Gastric ulcer, unspecified as acute or chronic, without hemorrhage or perforation Category: Medical Qualifiers: Gastric ulcer chronicity: unspecified ulcer chronicity Gastric ulcer complication status: without hemorrhage or perforation Qualified Code(s): K25.9 - Gastric ulcer, unspecified as acute or chronic, without hemorrhage or perforation Plan: Has been started on pantoprazole reports her GERD symptoms (3) Amenorrhea: Code(s): N91.2 - Amenorrhea, unspecified Category: Medical Plan: Has upcoming appointment with [facility] radio operator. Due to her amenorrhea will send for testing. Will send for a pelvic ultrasound evaluate for uterine fibroid. (4) Class 1 obesity: Code(s): E66.811 - Obesity, class 1 Category: Medical Plan: Patient has lost weight since last office visit.. Patient does understand her BMI is over 30 will work on being more physically active and adapting to better eating habits to reduce her weight Orders: Orders US pelvic and transvaginal 12/02/24 N91.2 - Amenorrhea, unspecified HCG Quantitative 12/02/24 N91.2 - Amenorrhea, unspecified
[2024-12-02 15:11] VITALS: BP 110/68; PULSE 79; TEMP 36.3; O2SAT 100; BMI 30.4
== END 2024-12-02 15:47 | disposition home or self-care (01) ==
LOC: HO.HMCH 14:58
PROVIDERS: PCP Physician Assistant; Visit Provider Physician Assistant
DX: Z00.00 Encounter for general adult medical examination without abnormal findings (principal); K25.9 Gastric ulcer, unspecified as acute or chronic, without hemorrhage or perforation; N91.2 Amenorrhea, unspecified; E66.811 Obesity, class 1; Z68.30 Body mass index [BMI] 30.0-30.9, adult

== ENCOUNTER → 2024-12-02 14:57 | Outpatient (BNVA) | payer OTHER, SELFPAY | PROVIDERS: PCP Physician Assistant; Visit Provider Physician Assistant | DX: Z00.00 Encounter for general adult medical examination without abnormal findings (principal); K25.9 Gastric ulcer, unspecified as acute or chronic, without hemorrhage or perforation; N91.2 Amenorrhea, unspecified; E66.811 Obesity, class 1; Z68.30 Body mass index [BMI] 30.0-30.9, adult | CPT/HCPCS: 99395 ==

== ENCOUNTER 2024-12-09 10:43 | Outpatient (REF) | payer OTHER, SELFPAY ==
--- OUTSIDE RECORDS SUMMARY | 2024-08-30 11:00 | XMS_ITS ---
Author Organization [facility] Address [address] [place] [phone] Care Team Providers Care Chairperson Anesthesiology Name Role Phone JULIO WEBBER Unavailable [phone] REASON FOR VISIT Follow-up Social History Sex Assigned At : Social History Observation Description Sex Assigned At Female Encounters Encounter Location Date Provider Diagnosis [facility] [address] [place] [phone] 06/2024 JULIO WEBBER Plan Of Treatment No Information Progress Notes * Nemo MCCULLOUGHeDOB:06/1990 (34 yo F)Acc No.[id number]:08/30/2024 Progress Notes Patient: Alana OQUENDO Provider: Kassy WEBBER :1990 A ge:33 Y S ex:Female Date:08/30/2024 Address:[facility] [id number] Subjective: * Chief Complaints: * 1 . Follow-up. * Medical History: Objective: * Vitals: Assessment: Plan: * Treatment: * Billing Information: * Visit Code: * Procedure Codes: * Electronic signature of RAFFY WEBBER CNM on 12/09/2024 at 11:26 AM EDT Sign off status: Pending * Provider: Kassy WEBBER Date: 08/30/2024 Generated for Krishna norwood/Nilson/Francisca on: 12/09/2024 11:26 AM EDT
== END 2024-12-09 10:44 | disposition home or self-care (01) ==
LOC: HO.LAB 10:43
PROVIDERS: PCP Physician Assistant; Visit Provider Physician Assistant
DX: N91.2 Amenorrhea, unspecified (principal)
CPT/HCPCS: 36415; 84702

== ENCOUNTER 2025-02-24 14:17 | Outpatient (REF) | payer OTHER, SELFPAY ==
--- OUTSIDE RECORDS SUMMARY | 2024-08-14 10:45 | XMS_ITS ---
Author Organization [facility] Address [address] [place] [address] Care Team Providers Care Registered Nurse Nursery Name Role Phone JULIO WEBBER Unavailable [phone] REASON FOR VISIT Follow-up Social History Sex Assigned At : Social History Observation Description Sex Assigned At Female Encounters Encounter Location Date Provider Diagnosis [facility] [address] [place] [phone] JULIO WEBBER Plan Of Treatment No Information Progress Notes * Nemo MCCULLOUGHeDOB:06/1990 (34 yo F)Acc No.[id number]:08/14/2024 Progress Notes Patient: Alana Shannon Provider: Kassy WEBBER :1990 A ge:33 Y S ex:Female Date:08/14/2024 Address:[address] [id number] Subjective: * Chief Complaints: * F ollow-up * Electronic signature of RAFFY WEBBER CNM on 02/24/2025 at 05:54 PM EDT Sign off status: Pending * Provider: Kassy WEBBER Date: 0 08/14/2024 Generated for Krishna norwood/Nilson/Francisca on: 1 05:54 PM EDT
--- OUTSIDE RECORDS SUMMARY | 2024-08-30 11:00 | XMS_ITS ---
Author Organization [facility] Address [address] [place] [address] Care Team Providers Care Molding Technician Name Role Phone JULIO WEBBER Unavailable [phone] REASON FOR VISIT Follow-up Social History Sex Assigned At : Social History Observation Description Sex Assigned At Female Encounters Encounter Location Date Provider Diagnosis [place] [facility] [address] [place] [phone] 06/2024 JULIO WEBBER Plan Of Treatment No Information Progress Notes * Nemo MCCULLOUGHeDOB:06/1990 (34 yo F)Acc No.[id number]:08/30/2024 Progress Notes Patient: Alana Shannon Provider: Kassy WEBBER :1990 A ge:33 Y S ex:Female Date:08/30/2024 Address:[address] [id number] Subjective: * Chief Complaints: * F ollow-up Billing Information: * Procedure Codes: * Electronic signature of RAFFY WEBBER CNM on 02/24/2025 at 05:54 PM EDT Sign off status: Pending * Provider: Kassy WEBBER Date: 0 08/30/2024 Generated for Krishna norwood/Nilson/Francisca on: 05:54 PM EDT
--- NOTE | ~2025-02-24 | US_ITS ---
EXAMINATION: US PELVIS TRANSABDOMINAL AND TRANSVAGINAL HISTORY: N91.2 - Amenorrhea, unspecified COMPARISON: There are no prior studies available for comparison. TECHNIQUE: Transabdominal and endovaginal real-time 2D vieyra-scale ultrasound was performed. FINDINGS: Uterus: The uterus is normal in size, measuring 7.4 x 3.6 x 4.9 cm. Myometrium has a normal echotexture. No fibroids are identified. Endometrium: The endometrial stripe measures 10 mm in thickness. Right ovary: The right ovary measures 2.2 x 1.3 x 1.7 cm. The right ovary is normal in size and echotexture. Left ovary: The left ovary measures 2.5 x 1.1 x 1.5 cm. The left ovary is normal in size and echotexture. Pelvic fluid: none. US/US pelvic and transvaginal IMPRESSION: Unremarkable pelvic ultrasound. Electronically signed by: Jesse Sethi MD 02/24/2025 03:24 PM EDT
--- OUTSIDE RECORDS SUMMARY | 2025-02-24 17:54 | XMS_ITS | Patient Health Record ---
Author Organization [facility] Address [address] [place] [address] Care Team Providers [facility] [place] Floor Service Worker Name Role Phone JULIO WEBBER Unavailable [phone] Nydia Us Unavailable [phone] Allergies No Known Allergies Results Component Value Reference Range Flag Notes Test, Urine Reviewed date:04/17/2024 02:05:35 PM Interpretation:Negative Performing Lab: Notes/Report: Negative Test, Urine neg Lot # [id number] Exp. Date 01/21/2025 THINPREP PAP TEST, Cervix Reviewed date:05/02/2024 08:53:55 AM Interpretation:Normal Performing Lab:[facility], [address], [place], [address] Dallas Benitez DO Notes/Report: THINPREP PAP TEST NEGATIVE NEGATIVE N -- THIN PREP PAP TEST -- SEX: F : 1990 AGE: 33 [id number] CLINIC ID: [id number] SS: PHYSICIAN: JULIO WEBBER CNM COLLECTED BY: Negative for Intraepithelial Lesion or Malignancy Additional Findings: Endocervical Material Present Specimen Adequacy: Satisfactory for Evaluation Clinical Note: HPV DtdfipiR80.419 Encounter for gynecological examination (general) (routine) without abnormal mfmkkfacI91.51 Encounter for screening for human papillomavirus (HPV), LMP 05-01-2017 Specimen Source: Cervix Visit Type: Routine Performed by: BREE Willard (ASCP) (Electronic Signature 04/20/2024 23:42) HPV HIGH RISK, Cervix Reviewed date:05/02/2024 08:54:04 AM Interpretation:Negative Performing Lab:[facility], [address], [place], [address] Dallas Benitez DO Notes/Report: HPV HIGH RISK NEGATIVE NEGATIVE N HPV High Risk DNA Probe Assay SEX: F : 1990 AGE: 33 [id number] CLINIC ID: [id number] SS: PHYSICIAN: JULIO WEBBER CNM COLLECTED BY: Specimen Source: Cervix Specimen Type: ThinPrep Pap Correlating Pap: [id number] Additional High Risk Subtypes* NEGATIVE * Includes 31,33,35,39,45,51,52,56, 58,59,66,68 Subtype 16 NEGATIVE Subtype 18 NEGATIVE Test, Urine Reviewed date:03/25/2024 02:01:28 PM Interpretation:Negative Performing Lab: Notes/Report: Negative Test, Urine nrg Lot # [id number] Exp. Date [id number] Urinalysis Reviewed date:03/26/2024 09:48:09 AM Interpretation:negative Performing Lab: Notes/Report: negative Leukocytes - Nitrates - Uro 0.2 Protein - pH 6.0 Blood - Spec [place] 1.030 Ketones - Bilirubin - Glucose - Prolactin-286629 Reviewed date:03/26/2024 02:38:20 PM Interpretation:23.3 (normal) Performing Lab:[facility], [address], [place], Phone - [phone], Director - [facility] Notes/Report: Prolactin 23.3 4.8-33.4 ng/mL Estradiol-225506 Reviewed date:04/05/2024 02:24:10 PM Interpretation:18.0 Performing Lab:[facility], [address], Phone - [phone], Director - [facility] Notes/Report: Estradiol 18.0 Adult Female Range Follicular phase 12.5 - 166.0 Ovulation phase 85.8 - 498.0 Luteal phase 43.8 - 211.0 Postmenopausal <6.0 - 54.7 1st trimester 215.0 - >4300.0 Pat ECLIA methodology T pallidum Screening [place] -[id number] Reviewed date:03/26/2024 10:11:22 AM Interpretation:non reactive Performing Lab:[facility], [address], [address], [place], Phone - [phone], Director - [facility] Notes/Report: T pallidum Antibodies Non Reactive Non Reactive HIV Ab/p24 Ag with Reflex-08 3935 Reviewed date:03/26/2024 12:34:27 PM Interpretation:non reactive Performing Lab:[facility], [address], [address], [place], Phone - [phone], Director - [facility] Notes/Report: HIV Ab/p24 Ag Screen Non Reactive Non Reactive HIV-1/HIV-2 antibodies and HIV-1 p24 antigen were NOT detected. There is no laboratory evidence of HIV infection. HIV Negative NuSwab VG+, Ena 6sp-1800 68 Reviewed date:04/05/2024 09:24:43 AM Interpretation:negative Performing Lab:[facility], [address] [place] [address], Phone - [phone], Director - [place] Notes/Report: and Drug Administration. by [employer]. It has not been cleared or approved by the Food was developed and its performance characteristics determined 795559-Iralgyg krusei, FABIOLA 491671-U parapsilosis/tropicalis; 841478-Ooepvrc lusitaniae, FABIOLA; Test(s) 071268-Keyzley albicans, FABIOLA; 764312-Kujaowm glabrata, FABIOLA; and Drug Administration. by [employer]. It has not been cleared or approved by the Food was developed and its performance characteristics determined Megasphaera 1 Test(s) 015754- Atopobium vaginae; 153438- BVAB 2; 841494- Atopobium vaginae Low - 0 BVAB 2 [...] FABIOLA Negative Negative C parapsilosis/tropicalis Negative Negative This assay does not differentiate C. tropicalis and C. parapsilosis. Ena lusitaniae, FABIOLA Negative Negative Ena krusei, FABIOLA Negative Negative Trich vag by FABIOLA Negative Negative Chlamydia trachomatis, FABIOLA Negative Negative Neisseria gonorrhoeae, FABIOLA Negative Negative TSH reflex to [id number] Reviewed date:03/26/2024 12:33:57 PM Interpretation:1.750 (normal) Performing Lab:[facility], [address] [place] [address], [address], Phone - [phone], Director - [facility] Notes/Report: TSH 1.750 0.450-4.500 uIU/mL Testosterone,All genders-540 005 Reviewed date:04/15/2024 10:57:18 AM Interpretation:11 Normal Performing Lab:[facility], [address] [place] [address], Phone - [phone], Director - [facility] Notes/Report: Testosterone, All genders 11 This test [...] 20-38 Adult Males >18 years 264-916 This SnipSnap LC/MS-MS method is currently certified by the CDC Hormone Standardization Program (HoST). Adult male reference interval is based on a population of healthy nonobese males (BMI <30) between 19 and 39 years old. Kimmy et.al. JCEM 2017,102;8540-1795 PMID: [id number]. Adult Females Premenopausal 10-55 Postmenopausal 7-40 FSH-096055 Reviewed date:04/05/2024 02:23:43 PM Interpretation:25.6 Performing Lab:[facility], [address], [place], Phone - [phone], Director - [facility] Notes/Report: FSH 25.6 Adult Female Range Follicular phase 3.5 - 12.5 Ovulation phase 4.7 - 21.5 Luteal phase 1.7 - 7.7 Postmenopausal 25.8 - 134.8 Reason For Referral No Information Social History Sex Assigned At : Social History Observation Description Sex Assigned At Female Social History HIV Risk Assessment Social Info Question Answer Notes Additional Questions Is an HIV Risk Asse ssment being conducted? No Reproductive Life Plan: Social Info Question Answer Notes Reproductive Life Plan: Do you want to have chil dren? No, I don't want to have children How sure are you that you will be able to use your control method without any problems? Very sure People's plans change. Is it possible you or your partner could ever decide to become ? No Human Trafficking: Social Info Question Answer Notes Human Trafficking Experienced: No PrEP for HIV: Social Info Question Answer Notes PrEP for HIV Is the client intere stepablito in beginning/continuing PrEP for HIV? No Sexual History: Social Info Question Answer Notes Sexual History: Sexual History Reviewed: Partner s, Practices, Protection/Past STIs Currently sexually active? Yes Sexually active with: Men Number of male partners 1 Your sexual activities include: vaginal intercourse Do you use condoms? No Date of last unprotected intercourse: 04/15/2024 Number of partners in past 3 months: 1 Number of partners in past year: 1 Does your partner(s) currently have any STIs? No Counseling Provided: Social Info Question Answer Notes Counseling Provided Please indicate the length of time, in minutes, that counseling was provided. 8 Counseling Was Provided By: adolfo Drugs/Alcohol: Social Info Question Answer Notes Drug/Alcohol Use Do you or have you used drugs? No Do you or have you used alcohol? No Food Access: Social Info Question Answer Notes Food Access The Client's current access to food is Insecure Access to food clt would like food referrals Relationships: Social Info Question Answer Notes Relationships Has the client experienced any of the following: Client has never experienced harmful relationships Housing Social Info Question Answer Notes Housing The client's current living situation is: stable housing Tobacco Use: Social Info Question Answer Notes Tobacco Use: Do you/have you used tobacco? 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) Secondary amenorrhea (N91.1) Active confirmed Problem Amenorrhea (73704205) Amenorrhea (N91.2) Active confirmed Vital Signs Blood pressure diastolic 76 mm Hg 04/17/2024 Height 5'5 in 04/17/2024 Blood pressure systolic 132 mm Hg 04/17/2024 Weight 220 lbs 04/17/2024 BMI 36.61 kg/m2 04/17/2024 Encounters Encounter Location Date Provider Diagnosis [address] [phone] 03/25/2024 Nydia Us Encounter for test, result negative Z32.02 ; Urinary frequency R35.0 ; Secondary amenorrhea N91.1 ; Encounter for screening for infections with a predominantly sexual mode of transmission Z11.3 ; Vaginal discharge N89.8 and Encounter for screening for human immunodeficiency virus [HIV] Z11.[address] [id number] 04/17/2024 JULIO WEBBER Encounter for gynecological examination [...] after Depo use. A long conversation using senior db2 systems programmer services to review this information. Did review [...] STI screening recommendations and available testing through [facility]. Testing ordered as noted per patient risks [...] risk of morbidity/mo rtality Plan Of Treatment No Information Insurance Providers Payer Name Payer Address Payer Phone Subscriber Number Group Number Insured Name Patient Relationship to Insured Coverage Start Date Coverage End Date [place] ATT CLAIMS [address] [place] [address] [id number] Alana Valencia Self - patient is the insured Medical (General) History Medical History History ICD Code Vaginal infections stomach ulcer Hospitalization History Reason Date(Month/Year) childbirth
== END 2025-02-24 14:18 | disposition home or self-care (01) ==
LOC: HO.US 14:17
PROVIDERS: PCP Physician Assistant; Visit Provider Physician Assistant
DX: N91.2 Amenorrhea, unspecified (principal)
CPT/HCPCS: 76830; 76856

== ENCOUNTER → 2025-02-24 14:19 | Outpatient (BNV) | payer OTHER, SELFPAY | PROVIDERS: PCP Physician Assistant; Visit Provider Radiology Diagnostic Radiology | DX: N91.2 Amenorrhea, unspecified (principal) | CPT/HCPCS: 76830; 76856 ==